=== PATIENT | male | born 1960 | race Caucasian/White ===

== ENCOUNTER → 2024-10-28 14:12 | Outpatient (REF) | payer BC, SELFPAY | LOC: MRI 14:12 | PROVIDERS: ATTENDING PHYSICIAN Psychiatry & Neurology Neurology; FAMILY PHYSICIAN Family Medicine | DX: R51.9 Headache, unspecified (principal) | CPT/HCPCS: 70544; 70551 ==

== ENCOUNTER 2024-11-23 16:04 | Inpatient (IN) | payer OTHER, SELFPAY ==
[2024-11-21] VITALS (8 sets, daily range): BP systolic 103–127; BP diastolic 64–88
[2024-11-21 17:09] LABS: % Basophils 0.6 % (0-2); % Eosinophils 2.8 % (0-6); % Immature Granulocytes 0.3 % (0-0.5); % Lymphocytes 22.2 % (20.5-51.1); % Monocytes 5.9 % (1.7-9.3); % Neutrophils 68.2 % (42.2-75.2); Absolute Eosinophils 0.2 10^3/uL (0-0.7); Absolute Lymphocytes 1.5 10^3/uL (1.2-3.4); Absolute Monocytes 0.4 10^3/uL (0.1-0.6); Absolute Neutrophils 4.7 10^3/uL (1.4-6.5); Hematocrit 44.4 % (39.0-52.0); Hemoglobin 15.6 g/dL (13.0-18.0); Mean Corp Hgb Conc. 35.1 g/dL (33.0-37.0); Mean Corpuscular Volume 91.2 fL (80.0-94.0); Mean Platelet Volume 9.5 fL (7.4-10.4); Nucleated Red Blood Cells % 0 % (-); Platelet Count 210 10^3/uL (130-400); Red Blood Cell Count 4.87 10^6/uL (4.70-6.10); Red Cell Dist. Width 12.2 % (11.5-14.5); White Blood Cell Count 6.9 10^3/uL (4.8-10.8)
--- NOTE | 2024-11-21 17:12 | ED.GENMED ---
History of Present Illness
General
Chief Complaint: Headache
Source: patient
Time Seen by Provider: 11/21/24 16:59
History of Present Illness
History of Present Illness:
64-year-old male presents to the emergency room complaining of headache, neck pain, dizziness and difficulty hearing. Patient has been having headache, auditory changes for several weeks. He was seen by various specialist and ultimately had a CT
of his head performed. CT showed chronic subdurals. Patient has been having worsening symptoms. He communicated with his doctors who ordered a CT angiogram today. Patient was unable to have it performed because he was having worsening headache.
Patient denies any nausea or vomiting. He denies any focal weakness numbness or tingling. Headache and neck pain seems worse with sitting up. He is taken Tylenol for pain without improvement. 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
Leyden deficiency.
Past History
Past History
ED Past Medical History: Other (PE/DVT/bursitis), Other (Covid pneumonia 08/29/19, adm in OR for 9 days, dced 09/07/19) and Other ( factor V Leiden deficiency. Rectal bleeding)
ED Past Surgical History: Orthopedic and Other (Tumor removed from the back.)
Social History
Tobacco: Non-smoker
Alcohol: None
Drug: None
Personal:
Living: with family
Employment: Employed
Family History
Family History: Other (Brother with diabetes mother with a brain tumor)
Phy Exam
Physical Exam
Physical Exam:
General: Awake, Alert, Oriented X3. No acute distress.
Vitals: unremarkable
Head: Atraumatic
Eyes: Pupils equal, EOMI
Throat: Airway intact, no exudates
Neck: Trachea midline
Lungs: Clear and equal b/l
Heart: Regular rate, no murmurs
Abd: Soft, Nontender, No pulsatile mass
Neuro: Cranial nerves intact, muscle strength equal bilaterally, cerebellar exam normal
Skin: Warm, dry, no rash
Extremities: pulses equal b/l, no edema
Course
Orders/Labs/Results
Orders:
Orders
11/21/24 17:02
C-Reactive Protein Urgent
Comment: ADDON
CMP [Comprehensive Metabolic Panel] Urgent
Complete Blood Count/With Diff Urgent
Erythrocyte Sed Rate Urgent
Comment: ADDON
11/21/24 17:10
Diphenhydramine [Benadryl] 25 mg IV NOW STA
Metoclopramide [Reglan] 10 mg IV NOW STA
11/21/24 17:21
CT Head & Neck Angio W/wo IV Urgent
Comment:
Reason For Exam: severe headache/neck pain, chronic subdural
11/21/24 17:31
Prothrombin Time Urgent
11/21/24 19:35
Add On- LAB Urgent
Tests Added?: sed rate, crp
11/21/24 21:50
HYDROmorphone [Dilaudid] 1 mg IV NOW STA
11/21/24 23:00
Flush (0.9% Sodium Chloride) [Flush (Nss)] See Dose Instructions IV PER PROTOCOL
11/21/24 23:05
Admit/Transfer Patient As Directed
Co-Sign Provider:
Level of Care: Observation services
Assign to:: Medical/Surgical
Physician / Group: citlalli so
Diagnosis: intractable neck pain/silva
Reason for Hospitalization: intractable neck pain/silva
Code Status As Directed
Resuscitation Status: Full Code
11/21/24 23:22
PRN Pain Medication Management As Directed
May give lesser potent ordered pain med per pt: Yes
preference::
Protocol:: Medication orders for pain may be administered in a
manner that supports deferring to patient preference
when the pt is:
- Requesting an ordered lesser potent pain medication.
Least to most potent pain medications are defined
as: acetaminophen < NSAID < tramadol < opioids
(morphine, oxycodone, hydromorphone).
- Requesting a lesser dose of the same medication IF
ORDERED.
- Requesting a less intrusive route of administration
if both routes are prescribed by the provider (PO <
IV).
11/21/24 23:28
Pantoprazole [Protonix] 20 mg PO NOW STA
Warfarin [Coumadin] 6 mg PO NOW STA
11/21/24 23:45
Rosuvastatin Calcium [Crestor] 5 mg PO QPM
Abnormal Lab Results
11/21/24 11/21/24
17:02 17:31
MCH 32.0 H pg
(27.0-31.0)
PT 29.1 H Sec
(11.4-14.6)
Chloride 110 H mmol/L
(98-107)
Glucose 116 H mg/dl
(70-99)
Total Bilirubin 2.2 H mg/dl
(0.2-1.3)
11/21/24 17:02
11/21/24 17:02
Vital Signs
Initial and Last Documented VS:
Initial Vital Signs
Temp Pulse Resp BP Pulse Ox
97.4 F 66 18 127/88 98
11/21/24 14:17 11/21/24 14:17 11/21/24 14:17 11/21/24 14:17 11/21/24 14:17
Last Documented Vital Signs
Temp Pulse Resp BP Pulse Ox
97.4 F 67 17 117/78 98
11/21/24 14:17 11/22/24 00:15 11/22/24 00:15 11/22/24 00:00 11/21/24 22:30
MDM/Problems Addressed
Differential Diagnosis Includes:
Tension headache, musculoskeletal strain, acute on chronic subdural, venous sinus thrombosis, subarachnoid hemorrhage
MDM/Problems Addressed:
Patient presents with neck pain and headache. No significant relief with migraine type medication. Toradol not an option given his use of Coumadin. Fortunately his INR is normal. CT of the head as well as a CT angiogram of the neck and head
failed to show any vascular abnormality. No evidence of dural sinus thrombosis. Patient had an MRI on October 28 which was also negative. Given the pain really starts in the cervical spine and emanates up to the head I think this very well could be
more of a cervical spine issue. Perhaps DJD. The CT of the head and neck does not show any obvious bony abnormality to explain his symptoms. However he likely requires an MRI to further exclude any serious pathology. The patient does not exhibit
any signs of cord compression such as bowel or bladder dysfunction, hyperreflexia, sensation changes. The patient has bilateral hygromas they do not appear to be causing any increased intracranial pressure as he has patent ventricles and they are
unchanged in the course of a month. Given the patient's persistent pain and the fact that he feels like he has too much pain to even sit up and stand up we will hospitalize him for further imaging of the cervical spine and pain control.
I considered giant cell arteritis as a possible cause for the patient's symptoms however CRP and sed rate are normal. The fact these tests are normal also makes something like an epidural abscess quite unlikely.
*Pulse Oximetry
SaO2: 98
Oxygen Mode of Delivery: Room air
Patient hypoxic: no
*Critical Care Note
Total Time (30-74mins, 75-104mins- exclusive of procedures): Not Applicable
ED Attending Note
-
Portions of this chart may have been created with voice recognition software.� Occasional wrong word or��sound alike� substitutions may have occurred due to the inherent limitations of voice recognition software.
Discharge Plan
Departure
Patient Disposition: Admit
Date of Disposition: 11/21/24
Time of Disposition: 22:11
Admit to: Med/Surg
Presentation/result/management discussed w/ accepting MD/DO: Hospitalist
Condition: Fair
Discharge Problem:
intractable neck pain
Interventions
Interventions:
*Risk Screen - Suicide Last Done: 11/21/24 14:17
*General Assessment Last Done: 11/21/24 17:18
*Neglect/Abuse Screening Last Done: 11/21/24 14:17
*ED- Fall Risk Assessment Last Done: 11/21/24 17:18
*ED COVID-19 Vaccine History Last Done: 11/21/24 17:18
ED- Neurological Assessment Last Done: 11/21/24 23:15
[2024-11-21] MEDS: BENADRYL 25 MG IV (17:26)
[2024-11-21] MEDS: REGLAN 10 MG IV (17:26)
[2024-11-21 17:32] LABS: ALT (SGPT) 30 U/L (0-50); AST (SGOT) 29 U/L (17-59); Albumin 4.6 g/dl (3.5-5.0); Alkaline Phosphatase 49 U/L (38-126); Blood Urea Nitrogen 17 mg/dl (9-20); Calcium 9.4 mg/dl (8.4-10.2); Carbon Dioxide 25 mmol/L (22-30); Chloride 110 mmol/L (98-107); Glucose 116 mg/dl (70-99); Sodium 143 mmol/L (135-145); Total Bilirubin 2.2 mg/dl (0.2-1.3); Total Protein 7.4 g/dl (6.3-8.2); eGFR > 60.00
[2024-11-21 17:54] LABS: INR 2.75; PT 29.1 Sec (11.4-14.6)
[2024-11-21 20:05] LABS: Erythrocyte Sed Rate 5 mm/hour (0-20)
[2024-11-21 20:15] LABS: C-Reactive Protein < 5.00 mg/L (0.0-10.00)
[2024-11-21] MEDS: DILAUDID 1 MG IV (21:55)
--- NOTE | 2024-11-21 22:19 | HPS.HSE ---
Family Physician
-
Family Physician: Juve Mcintyre
Chief Complaint
-
Posterior neck pain with radiation of headache to frontal sinus, hearing loss left greater than right
History of Present Illness
64-year-old male complaining of posterior base of neck/skull pain radiates to frontal sinus, headache, dizziness with difficulty hearing left greater than right. He reports his symptoms started first 4 weeks ago [facility]
diagnosed with a sinusitis placed on amoxicillin and steroids taper. He had a follow-up a week later with ENT Dr. Vital who tested his hearing and states it was the same since 10 years ago. He saw neurologist Dr. Osmel Arellano 3 weeks ago in
[facility] who referred him to neurosurgery. Before neurosurgery he had an MRI here at [facility] on October 28 showing subdural hygromas. He did see Dr. Bell at [place] approximately 1 week ago who suggested a CT scan with angiogram the same day
he wanted a second opinion and saw Dr.Vivish Reinoso via telehealth at [facility] who also recommended CT angiogram if that was negative he had suggested having his tympanic membranes evaluated by a specific physician. He denies blurred
vision, fever, chills, rash, tick bites, weakness, dropping things, chest pain, palpitations, cough, shortness of breath, weight loss, abdominal pain, nausea, vomiting, diarrhea, urinary symptoms. On exam he does have hyporeflexive extremities left
greater than right. He reports when he sits up he feels a pulling sensation in his neck which intensifies his headache and exacerbates a vertigo.
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
deficiency is on warfarin, GERD, IBS, hyperbilirubinemia(average level 2.2), COVID-pneumonia 08/29/2019 admitted [place] 9 days
Medical History
Past Medical History
Past Medical History: Reports Other
Additional Past Medical History:
Chronic hygromas on MRI September 2024
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
Spinal tumor 2005
DVT/PE post left knee surgery 2007
Factor V deficiency is on warfarin
GERD
IBS
Hyperbilirubinemia(average level 2.2)
HLD
Past Surgical History: Reports Other
Additional Past Surgical History:
Hemangioblastoma removed 11/2005 from T8
Left knee reconstruction 1985
Right knee reconstruction 1998
Left thumb pinning 1993
July 2016 right wrist surgery
Social History
Tobacco: Non-smoker
Alcohol: Occasional (2-3 beers a week)
Drug: None
Personal: Single
Living: With Family (Daughter at bedside)
Employment: Employed
Family History
Family History: Other (Mother history of glioblastoma age 89 father history of prostate cancer age 63)
Allergies / Home Medications
Allergies reflects when Allergies were last updated in [employer].
Home Medications with original date entered in [employer]
Allergy/Medication List:
Allergies
Allergy/AdvReac Type Severity Reaction Status Date / Time
No Known Allergies Allergy Verified 07/15/16 15:39
Home Medications
warfarin 6 mg tablet 6 mg PO QPM 01/04/11
Crestor 5 mg PO DAILY@11/21/24
omeprazole 20 mg PO DAILY@11/21/24
Review of Systems
-
History Source: Patient and Family (Daughter at bedside)
A 12 point ROS was completed and negative except as noted: Yes
Constitutional: Denies Fever, Weight Loss, Fatigue or Chills
EENT: Reports Other (Humming pressure sound to left ear with hearing loss, posterior neck pressure/headache/frontal sinus headache with light sensitivity); Denies Sore Throat
Respiratory: Denies Cough or Trouble Breathing
Cardiac: Denies Chest Pain, Diaphoresis, Palpitations or Syncope
Abdomen/GI: Denies Abdominal Pain, Nausea, Vomiting, Diarrhea, Constipated or Bloody Stools
: Denies Dysuria, Frequency, Flank Pain, Incontinence, Difficulty Voiding, Urgency or Dark Urine
Musculoskeletal: Denies Joint Pain or Edema
Skin: Denies Itching or Rash
Neurological: Reports Dizzy (With standing) and Headache (Posterior neck and frontal sinus); Denies Weakness or Numbness
Endocrine: Reports No Symptoms
Hematologic/Lymphatic: Reports No Symptoms
Psych: Reports Calm
Physical Exam
Vital Signs
Vital Signs
Temp Pulse Resp BP Pulse Ox
97.4 F 62 14 118/75 99
11/21/24 14:17 11/21/24 21:45 11/21/24 20:45 11/21/24 21:00 11/21/24 21:45
Physical Exam
General: Comfortable and Conversant; No Pain, Fever or Chills
HEENT: NormoCephalic, Anicteric, Moist mucous membranes, PERRLA and Other (Humming pressure sound to left ear with hearing loss, posterior neck pressure/headache/frontal sinus headache with light sensitivity); No Thyromegaly
Respiratory: Clear; No Wheezes, Rales or Rhonchi
Cardiac: S1/S2 and Regular Rhythm; No Murmur, Rub or Gallop
Breast: Deferred by me
GI: Soft, Non Tender, Non Distended, Normal Bowel Sounds and No Hepatosplenomegaly
Genito-urinary: Deferred by me
Musculoskeletal: No Clubbing, No Cyanosis and No Edema
Skin: Warm and Dry; No Rash or Jaundice
Neuro: AO x 3 and Other (Hearing impaired left greater than right, hyporeactive reflexes left greater than right); No Slurred Speech, Facial Droop, Tremors or Sedated
Psych: Calm
Laboratory Results
-
11/21/24 17:02
11/21/24 17:02
Laboratory Results
PT 29.1 Sec (11.4-14.6) H 11/21/24 17:31
INR 2.75 11/21/24 17:31
Total Bilirubin 2.2 mg/dl (0.2-1.3) H 11/21/24 17:02
AST 29 U/L (17-59) 11/21/24 17:02
ALT 30 U/L (0-50) 11/21/24 17:02
Alkaline Phosphatase 49 U/L (38-126) 11/21/24 17:02
Data Reviewed
-
Lab Data: Labs Reviewed by me
Impression/Plan
-
Impression/plan:
Observation MedSurg
#Intractable cervical pain with migraine
#History of chronic hygromas on MRI September 2024
- Pain control
- Consult Neurology
-Patient saw neurosurgery via Zoom Dr.Vivish Reinoso from [facility]
- MRI with and without cervical spine/thoracic in a.m.
- Patient claustrophobic will require IV Ativan on-call to MRI
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
#Spinal tumor 2005
#DVT/PE post knee surgery
#Factor V deficiency is on warfarin
-INR 2.75 on Coumadin
Follow PTT INR
- Continue Coumadin 6 mg daily
#GERD
- Continue omeprazole
#HLD
Continue Crestor 5 mg with dinner
#IBS
#Hyperbilirubinemia(average level 2.2)
T. bili 2.2 at baseline
#COVID-pneumonia 08/29/2019 admitted [place] 9 days
DVT prophylaxis
Continue COLORIST DYER Coumadin
Full code
--- NOTE | 2024-11-21 22:36 | W.PN.UPDATE ---
Addendum entered and electronically signed by Kyler Gamble MD 11/21/24 22:54:
H & N CTA
- No significant vascular occlusion, aneurysm or dissection. No significant change between flexion/extension.
Original Note:
Update Note
Progress Note Update
This note serves as an addendum to the H&P by gas specialist JUNIE Apurva SHANNON
64M HX Factor V deficiency for which he takes warfarin, HX chronic hygromas noted a month ago on an MRI without intrval change, distant HX intramedullary hemangioblastoma of T8 seen at ER
- progressive and severe neck and basal skull pain for a couple weeks
- reports SOUZA but seems neck pain that radiates to head then a true headache.
- pain becomes worse with upright posture
Vital Signs
Temp Pulse Resp BP Pulse Ox
97.4 F 62 18 115/80 98
11/21/24 14:17 11/21/24 22:30 11/21/24 22:30 11/21/24 22:00 11/21/24 22:30
Exam
- No focal weakness.
- Somewhat symmetrically decreased deep tendon reflexes at all 4 limbs
- symmetric motor strength and tone in all limbs
- No focal sensory deficit
Abnormal Lab
11/21/24 11/21/24
17:02 17:31
MCH 32.0 H
PT 29.1 H
Chloride 110 H
Glucose 116 H
Total Bilirubin 2.2 H
Unremarkable HCT and H & N CTA
ASSESSMENT & PLAN
Progressive and severe neck and basal skull pain
DDX: Cervical disc dz or recurrent spinal hemangioblastoma
- ER attd d/w neurosurgery (Dr. High) who did think there was anything else to do at this point.
- MRI of Cx and Tx spine w/wo contrast
- Pain control with Narcotic Analgesia PRN
Therapeutic INR at 2.7 for HX Factor V deficiency on chr warfarin- to becot, f/u INR
DVT Px; SENIOR ADMINISTRATIVE SUPPORT chr warfarin
Full code
OBS MS
[2024-11-22] VITALS (8 sets, daily range): BP systolic 110–130; BP diastolic 62–84; BMI 25.5
[2024-11-22] MEDS: COUMADIN 6 MG PO ×2 (00:06→17:25)
[2024-11-22] MEDS: CRESTOR 5 MG PO ×2 (00:07→17:30)
[2024-11-22] MEDS: PROTONIX 20 MG PO (00:07)
[2024-11-22] MEDS: FLUSH (NSS) 1 FLUSH IV (00:09)
--- NOTE | 2024-11-22 01:23 | PTCARENOTE ---
01:07 pt rec'vd from ER ,pt is aa0x3 ambulates in room, education with use of call mead for ambulation due to dx headache/balance. Pt verbalized understanding , oriented to unit.
[2024-11-22] MEDS: DILAUDID 0.5 MG IV ×4 (01:39→19:19)
[2024-11-22] MEDS: OFIRMEV 100 IV (04:55)
[2024-11-22 06:45] LABS: INR 2.76; PT 29.1 Sec (11.4-14.6)
[2024-11-22 06:47] LABS: % Basophils 0.8 % (0-2); % Eosinophils 5.6 % (0-6); % Immature Granulocytes 0.3 % (0-0.5); % Lymphocytes 36.1 % (20.5-51.1); % Monocytes 10.5 % (1.7-9.3); % Neutrophils 46.7 % (42.2-75.2); Absolute Basophils 0.1 10^3/uL (0-0.2); Absolute Eosinophils 0.4 10^3/uL (0-0.7); Absolute Lymphocytes 2.3 10^3/uL (1.2-3.4); Absolute Monocytes 0.7 10^3/uL (0.1-0.6); Absolute Neutrophils 2.9 10^3/uL (1.4-6.5); Hematocrit 41.4 % (39.0-52.0); Hemoglobin 14.5 g/dL (13.0-18.0); Mean Corpuscular Hgb 32.1 pg (27.0-31.0); Mean Corpuscular Volume 91.6 fL (80.0-94.0); Mean Platelet Volume 9.6 fL (7.4-10.4); Nucleated Red Blood Cells % 0 % (-); Platelet Count 207 10^3/uL (130-400); Red Blood Cell Count 4.52 10^6/uL (4.70-6.10); Red Cell Dist. Width 12.4 % (11.5-14.5); White Blood Cell Count 6.3 10^3/uL (4.8-10.8)
[2024-11-22 06:53] LABS: ALT (SGPT) 27 U/L (0-50); AST (SGOT) 23 U/L (17-59); Albumin 4.1 g/dl (3.5-5.0); Alkaline Phosphatase 43 U/L (38-126); Blood Urea Nitrogen 19 mg/dl (9-20); Calcium 9.2 mg/dl (8.4-10.2); Carbon Dioxide 30 mmol/L (22-30); Chloride 107 mmol/L (98-107); Estimated Creatinine Clearance 81 ml/min; Glucose 102 mg/dl (70-99); Magnesium 2.1 mg/dl (1.6-2.3); Potassium 3.8 mmol/L (3.5-5.1); Sodium 142 mmol/L (135-145); Total Bilirubin 1.9 mg/dl (0.2-1.3); Total Protein 6.7 g/dl (6.3-8.2); eGFR > 60.00
--- NOTE | 2024-11-22 10:23 | CM ---
Reviewed the chart notes and spoke with the patient at the bedside. The patient is admitted under observational status. The observation letter was provided and explained. The patient had no questions with regards to the letter.
The patient resides alone in a third floor condo with three flights of steps to enter. The patient reports no DME/VN/SNF in the past. The patient confirmed his pharmacy of choice is [facility]. continues to be available to
patient/family and is monitoring medical plan for needs at discharge.
Plan: Discharge to home when medically stable. No anticipated needs identified at this time.
--- NOTE | 2024-11-22 12:40 | W.PN.HOSP.TC ---
Today's Communication/Plan
-
Assessment / Plan
Assessment / Plan
NAD
Scleral Anicteric
MMM
No JVD
CTABL
RRR, S1/S2
Soft, NT, ND, BS+
Warm, Dry
AAOx3, no focal deficits
Calm
Cervicalgia with migraine
-Suspect more musculoskeletal
MRI C-spine in thoracic spine ordered
Start Flexeril and Valium
Heating pack
VTE post knee surgery factor V deficiency
Continue Coumadin
Daily INR
Continue Coumadin 6 mg nightly
GERD
Continue PPI
HLD
Continue Crestor
Anticipated Discharge: 24 - 48 hours
Subjective/Interval History
-
Date of Service: November 22, 2024
Seen and examined. No new complaints. No acute overnight events.
Ice pack over his neck
No numbness tingling loss of sensation, blurry vision or loss of hearing. No chest pain shortness of breath fevers chills
Objective Data
-
Labs:
Laboratory Results
11/22/24
05:30
WBC 6.3
Hgb 14.5
Hct 41.4
Plt Count 207
PT 29.1 H
INR 2.76
Sodium 142
Potassium 3.8
Chloride 107
Carbon Dioxide 30
BUN 19
Creatinine 1.1
Glucose 102 H
Calcium 9.2
Total Bilirubin 1.9 H
AST 23
ALT 27
Alkaline Phosphatase 43
Vital Signs:
Vital Signs
Temp Pulse Resp BP Pulse Ox
97.8 F 59 16 130/78 98
11/22/24 07:35 11/22/24 07:35 11/22/24 07:35 11/22/24 07:35 11/22/24 07:35
I&O
11/21/24 11/22/24 11/23/24
06:59 06:59 06:59
Intake Total 500 / 500
Balance 500 / 500
[2024-11-22] MEDS: FLEXERIL 5 MG PO (14:24)
[2024-11-22] MEDS: ZOFRAN 4 MG IV (15:04)
[2024-11-22] MEDS: NSS (PRESERVATIVE FREE) 0.5 ML IV (19:25)
[2024-11-22] MEDS: ATIVAN 1 MG IV (19:26)
[2024-11-22] MEDS: VALIUM 1 MG PO (23:19)
[2024-11-23] MEDS: LIDOCAINE 4% PATCH TOPICAL (01:00)
[2024-11-23 06:07] LABS: % Basophils 0.6 % (0-2); % Eosinophils 4.4 % (0-6); % Immature Granulocytes 0.4 % (0-0.5); % Lymphocytes 33.5 % (20.5-51.1); % Monocytes 8.4 % (1.7-9.3); % Neutrophils 52.7 % (42.2-75.2); Absolute Eosinophils 0.3 10^3/uL (0-0.7); Absolute Lymphocytes 2.3 10^3/uL (1.2-3.4); Absolute Monocytes 0.6 10^3/uL (0.1-0.6); Absolute Neutrophils 3.7 10^3/uL (1.4-6.5); Hematocrit 43.6 % (39.0-52.0); Hemoglobin 15.5 g/dL (13.0-18.0); Mean Corp Hgb Conc. 35.6 g/dL (33.0-37.0); Mean Corpuscular Volume 89.9 fL (80.0-94.0); Mean Platelet Volume 9.5 fL (7.4-10.4); Nucleated Red Blood Cells % 0 % (-); Platelet Count 216 10^3/uL (130-400); Red Blood Cell Count 4.85 10^6/uL (4.70-6.10); Red Cell Dist. Width 11.9 % (11.5-14.5)
[2024-11-23 06:16] LABS: INR 2.95; PT 31.1 Sec (11.4-14.6)
[2024-11-23 06:37] LABS: ALT (SGPT) 28 U/L (0-50); AST (SGOT) 27 U/L (17-59); Albumin 4.6 g/dl (3.5-5.0); Alkaline Phosphatase 46 U/L (38-126); Blood Urea Nitrogen 24 mg/dl (9-20); Calcium 9.5 mg/dl (8.4-10.2); Carbon Dioxide 27 mmol/L (22-30); Chloride 108 mmol/L (98-107); Estimated Creatinine Clearance 74 ml/min; Glucose 109 mg/dl (70-99); Potassium 4.2 mmol/L (3.5-5.1); Sodium 140 mmol/L (135-145); Total Bilirubin 2.2 mg/dl (0.2-1.3); Total Protein 7.3 g/dl (6.3-8.2); eGFR > 60.00
[2024-11-23 07:35] VITALS: BP 117/67
[2024-11-23] MEDS: DILAUDID 0.5 MG IV ×2 (09:22→13:50)
[2024-11-23] MEDS: FLUSH (NSS) 2 FLUSH IV (09:24)
--- NOTE | 2024-11-23 10:52 | W.PN.HOSP.TC ---
Addendum entered and electronically signed by Dixon Singer MD 11/24/24 08:21:
More than 30 minutes spent in discharge including
Final examination of the patient
Summarizing hospital stay
Instructions for continuing care to all relevant caregivers
Preparation of discharge records, prescriptions, and referral forms
Total time spent (in minutes): 52
Addendum entered and electronically signed by Dixon Singer MD 11/23/24 16:08:
Discussed case in detail with neurology, neurosurgery and RN. Patient with severe persistent headache with possibility of due to intracranial hypertension due to suspected cervical spine dural tear. Patient remains with persistent headache without
much improvement. Patient even was started on IV fluids. Per neurosurgery and neurology further treatment management would need to be done. Patient will be transferred to [facility] for further management. Accepting attending will be
. Patient signed a form. Discussed case with patient daughter at bedside in detail. Case management also informed. Await for transfer. Patient INR is therapeutic. Hold Coumadin for possible procedure.
Original Note:
Today's Communication/Plan
-
start IVF
neuro input
pain control
Assessment / Plan
Assessment / Plan
NAD
Scleral Anicteric
MMM
No JVD
CTABL
RRR, S1/S2
Soft, NT, ND, BS+
Warm, Dry
AAOx3, no focal deficits
Calm
#Headache subacute-worse with movement at times
#Tinnitus due to see ENT inner staff nuclear medicine technologist as outpatient
MRI C-spine in thoracic spine ordered
MR Hernandezine per radiologist- d/w with Dr Hill suggesting possibility of upper cervical epidural venous congestion which may be seen with spontaneous intracranial hypotension, which may also explain the subdural hygromas on his brain MR.
MR thoraic spine The thoracic cord is normal in size and signal intensity. No abnormal enhancement. No focal disc protrusion, central canal, or foraminal stenosis.
Start Flexeril and Valium
Heating pack
Start IVF
Will ask neuro for input
VTE post knee surgery factor V deficiency
Continue Coumadin
Daily INR
Continue Coumadin 6 mg nightly
GERD
Continue PPI
HLD
Continue Crestor
Anticipated Discharge: > 48 hours
Subjective/Interval History
-
Date of Service: November 23, 2024
complains of severe headache
starts at left side of neck which radiates to left forehead than radiates over entire head
severe pain-worse on standing
has some tinnitus -Prior to arrival
Objective Data
-
Labs:
Laboratory Results
11/23/24
05:55
WBC 7.0
Hgb 15.5
Hct 43.6
Plt Count 216
PT 31.1 H
INR 2.95
Sodium 140
Potassium 4.2
Chloride 108 H
Carbon Dioxide 27
BUN 24 H
Creatinine 1.2
Glucose 109 H
Calcium 9.5
Total Bilirubin 2.2 H
AST 27
ALT 28
Alkaline Phosphatase 46
Vital Signs:
Vital Signs
Temp Pulse Resp BP Pulse Ox
98.2 F 73 16 117/67 97
11/23/24 07:35 11/23/24 07:35 11/23/24 07:35 11/23/24 07:35 11/23/24 07:35
I&O
11/22/24 11/23/24 11/24/24
06:59 06:59 06:59
Intake Total 500 / 500 120 / 120
Output Total 950 / 950
Balance 500 / 500 -830 / -830
--- NOTE | 2024-11-23 10:53 | CM ---
Addendum entered by Megan May 11/23/24 16:04:
Per physician patient is for transfer to [place] for neurosurgery.
Original Note:
Patient seen at bedside on . Patient c/o pain and nursing made aware. Patient is OBS status and per chart review form completed 11/22/24. CM will continue to follow for discharge planning needs.
Plan; home with no needs anticipated at this time
--- NOTE | 2024-11-23 11:24 | CON.NEURO4 ---
Addendum entered and electronically signed by Ad Hollins MD 11/23/24 17:26:
Studies reviewed.
I have personally examined the patient. I reviewed and agree with the PHARMACY BENEFIT MANAGER's Note.
My addenda:
Awake, alert, interactive. No acute distress, until attempted upgaze
Speech intact.
Follows 2-step requests w/o difficulty. No tremor.
Extra-ocular movements grossly intact.
Facial movements full and symmetric. Hearing intact to normal conversational volume.
Normal UE movements bilaterally.
Neck: full ROM.
Chest: no dyspnea
Heart: no JVD
Ext: (-) Clubbing, (-) Cyanosis, (-) Edema
IMPRESSIONS/RECOMMENDATIONS:
Abrupt onset of dizziness, intractable headache with development of atraumatic subdural hygromas
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
Recommend neurosurgical reevaluation as inpatient
Patient may benefit from spinal myelography at all levels to determine where the potential leak is taking place as MRI of the thoracic spine was nonrevealing
Blind blood patch may be utilized in the interim in hopes of remediating his current issue
Unlikely that this is related to his prior intramedullary hemangioblastoma remediated in 2005
Routine pain medications for remediation may be of mild temporary assistance but will not remediate the underlying cause
D/W patient / family / nursing
All questions answered.
Will continue to follow patient.
Original Note:
Consultation - Neurology 4
-
CONSULTING PHYSICIAN: Ad Hollins MD
REFERRING PHYSICIAN: Hospitalists/Dr. Singer
DICTATED BY: OLY Edwards
DATE/TIME OF REQUEST: 11/23/24
DATE/TIME OF CONSULTATION: 11/23/24
Reason for Consultation: Headache
History of Present Illness:
This is a 64-year-old right-handed male who has presented to the hospital with report of hearing changes, head/neck pain, and dizziness. Patient reports that about 5-6 weeks ago he started to hear a 'speaker' sound in his left ear. He noticed at
the grocery store that he couldn't hear the words coming from overhead speakers, he just hear a loud buzzing speaker sound. He went to ENT Dr. Vital to be evaluated and reports his hearing was the same as it was 10 years ago and there was no
structural abnormality wrong with his ear. He then started to develop sinus pain and was started on amoxicillin and steroids for a presumed sinus infection. He reports that he then started developing a dizzy sensation and went to a Neurologist "Raymond"Adan Luther for evaluation. He ordered an MRI brain and MRA head which he completed on 10/28/24 and demonstrate small bihemispheric subdural fluid collections, likely hygromas. He was then referred to Neurosurgery Dr. Bell at [facility], who recommended
a diagnostic CT angiogram. He went for a second opinion via telehealth with the [facility] by Dr. Genie Reinoso who also recommended diagnostic angiogram. He had not completed this yet as an outpatient. Last week, he developed neck
pain. His neck/head pain significantly worsened over the past 3 days, prompting him to come to the ER for evaluation.
Patient reports that the loud hum in his left ear changes with movement and has gotten louder with time. The pain starts at the back of his neck and radiates up across the top of his head and squeezes at his temples. He describes it as a crushing
sensation. He also notes eye pain when he looks in different directions. He has mild photophobia; denies phonophobia, nausea, and vomiting. Lying down improves his symptoms after a couple of minutes, he rates his discomfort a 3/10 currently with
lying. Standing up makes his symptoms worsen and he rates that discomfort an 8/10. Standing for longer periods he also starts to feel dizzy. He denies any vision changes, speech/swallow difficulty, numbness, and weakness. He denies any recent
illness, fever, rash, or travel. Six months ago he collided with someone playing pickle ball but did not lose consciousness.
In his late 20's he was hospitalized with concern for meningitis, he reports having a lumbar puncture at that time and ultimately needed a blood patch. 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
underwent surgery by Dr. Crum at [facility] in 2005. He is taking warfarin for Factor V Leiden.
Past Medical History: Spinal tap with CSF leak in his 20's due to concern for meningitis, T8 intramedullary hemangioblastoma, PE, DVT, Factor V Leiden (warfarin), MAYTE, GERD, HLD, hyperbilirubinemia
Surgical History: T8 tumor removal, b/l knee reconstruction, left thumb pinning, right wrist surgery
Family History: Mother- brain tumor
Social History: Denies tobacco and illicit drug use. Occasional alcohol.
Allergies: No known allergies.
Home Medications: See below.
Review of Symptoms:
Patient denies any fever, chest pain, shortness of breath, GI or symptoms.
�Per the HPI.�All systems are reviewed negative except above.
Physical Exam:
The patient is afebrile, abdomen is nondistended, breathing is unlabored, skin is warm and dry, no edema.
Neurologic Examination:
The patient is awake, alert and oriented x 3. He is able to follow commands and answer questions appropriately. There is no aphasia or dysarthria. On cranial nerve assessment, pupils are 3 mm bilateral, round and reactive to light and
accommodation. Visual colon are full. Extraocular movements are intact, reports pain with this. Facial sensations are intact and bilaterally symmetrical, there is no facial asymmetry. Hearing is intact bilaterally to normal conversation volume.
Tongue palate and uvula are midline. Sternocleidomastoid strengths are full bilaterally. Motor strengths are 5/5 bilateral upper and lower extremities on medical research [place] scale. There is no drift or involuntary movement noted. Deep tendon
reflexes are 2+ bilateral upper and lower extremities and Babinski is absent bilaterally. Sensations of pain, touch, temperature and vibration are intact and bilaterally symmetrical. There was no extinction noted on double simultaneous stimulation.
Coordination is intact by finger to nose bilaterally.
Lab Results: See below.
Neuro Imaging:
1. MRI Brain 10/28/24: Small bihemispheric subdural fluid collections most compatible with subdural hygromas or chronic hematomas. No MRI evidence for acute or subacute blood products.
2. MRA Head 10/28/24: Patent dural venous sinuses. No high-grade stenosis or occlusion of the [place] of [place]. 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
3. CTA head/neck 11/21/24: No significant vascular occlusion, aneurysm or dissection. No significant change between flexion/extension. Grossly stable bilateral subdural fluid collections.
4. MRI cervical spine 11/22/24: Patient movement with motion degradation obscures fine detail. Findings suspicious for upper cervical epidural venous congestion. Although nonspecific, this has been described in patients with spontaneous intracranial
hypotension. Clinical correlation therefore necessary. No cerebellar ectopia at the craniocervical junction. No apparent cervical cord signal alteration or abnormal enhancement.
5. MRI thoracic spine 11/22/24: Minor curvature convex right. The disc spaces are relatively well-maintained. Normal vertebral stature. The thoracic cord is normal in size and signal intensity. No abnormal enhancement. No focal disc protrusion,
central canal, or foraminal stenosis. Multilevel bilateral small perineural cysts are noted. Incidental small hepatic cysts noted.
Differentials for the patient's presentation include:
1. Spontaneous intracranial hypotension; subdural hygromas.
2. History of T8 intramedullary hemangioblastoma s/p resection.
Patient has the following risk factors for their symptoms: None.
Recommendations:
-Needs Neurosurgery evaluation to determine source of dural leak.
-Not clearly a candidate for blood patch by IR due to prior T8 surgery.
Discussed patient care with: Dr. Hollins, the patient, patient's daughter
Vital Signs and Labs
-
Vital Signs and Labs:
Vital Signs
Temp Pulse Resp BP Pulse Ox
98.2 F 73 16 117/67 97
11/23/24 07:35 11/23/24 07:35 11/23/24 07:35 11/23/24 07:35 11/23/24 09:00
Lab Results
11/23/24 05:55
11/23/24 05:55
PT 31.1 Sec (11.4-14.6) H 11/23/24 05:55
INR 2.95 11/23/24 05:55
Sodium 140 mmol/L (135-145) 11/23/24 05:55
Potassium 4.2 mmol/L (3.5-5.1) 11/23/24 05:55
BUN 24 mg/dl (9-20) H 11/23/24 05:55
Glucose 109 mg/dl (70-99) H 11/23/24 05:55
Calcium 9.5 mg/dl (8.4-10.2) 11/23/24 05:55
Medications
-
Active Medications
Generic Name Dose Route Start Last Admin
Trade Name Freq PRN Reason Stop Dose Admin
Acetaminophen 650 mg 11/22/24 01:07
Acetaminophen 325 Mg Tablet PO 12/20/24 01:06
Q4HPRN PRN
mild pain/SOUZA/temp> 100.4F
Bisacodyl 10 mg 11/22/24 01:07
Bisacodyl 10 Mg Rectal Suppository RECTAL 12/20/24 01:06
[id number] PRN
constipation
Cyclobenzaprine HCl 5 mg 11/22/24 09:26 11/22/24 14:24
Cyclobenzaprine 10 Mg Tablet PO 12/20/24 09:25 5 mg
Q8HPRN PRN Administration
neck spasm/pain
Diazepam 1 mg 11/22/24 09:26 11/22/24 23:19
Diazepam 2 Mg Tablet PO 12/20/24 09:25 1 mg
TIDPRN PRN Administration
neck pain
Diphenhydramine HCl 25 mg 11/22/24 01:07
Diphenhydramine 50 Mg/Ml 1 Ml Vial IV 12/20/24 01:06
Q4HPRN PRN
headache
Hydromorphone HCl 1 mg 11/22/24 01:07
Hydromorphone 1 Mg/Ml Carpuject IV 12/06/24 01:06
Q4HPRN PRN
sever pain
Hydromorphone HCl 0.5 mg 11/22/24 01:07 11/23/24 09:22
Hydromorphone 0.5 Mg/0.5 Ml Syringe IV 12/06/24 01:06 0.5 mg
Q4HPRN PRN Administration
mod pain
Lactated Ringer's 1,000 mls @ 125 mls/hr 11/23/24 11:00
Lr IV
.Q8H KIYA
Lidocaine 1 patch 11/23/24 00:00 11/23/24 01:00
Lidocaine 4% Topical Patch TOPICAL 12/21/24 00:00 Not Given
HS KIYA
Protocol
Melatonin 5 mg 11/22/24 23:55 11/23/24 00:00
Melatonin 5 Mg Tablet PO 12/20/24 23:54 Not Given
HS KIYA
Ondansetron HCl 4 mg 11/22/24 01:07 11/22/24 15:04
Ondansetron 4 Mg/2 Ml Vial IV 12/20/24 01:06 4 mg
Q6HPRN PRN Administration
NAUSEA/VOMITING
Patch Removal 1 patch 11/23/24 10:00 11/23/24 09:41
Remove Lidocaine Patch REMOVE 12/21/24 09:59 Not Given
DAILY@1000 KIYA
Polyethylene Glycol 17 grams 11/22/24 01:07
Polyethylene Glycol Powder 17 Grams Packet PO 12/20/24 01:06
DAILYPRN PRN
constipation
Rosuvastatin Calcium 5 mg 11/21/24 23:45 11/22/24 17:30
Rosuvastatin (Crestor) 5 Mg Tablet PO 12/19/24 23:44 5 mg
QPM KIYA Administration
Senna/Docusate Sodium 1 tablet 11/22/24 01:07
Docusate W/Senna (Jayne-Colace) Tablet PO 12/20/24 01:06
BIDPRN PRN
constipation
Sodium Chloride 0 flush 11/21/24 23:00 11/23/24 09:24
Sodium Chloride 0.9% (Flush) Syringe IV 12/19/24 22:59 2 flush
PER PROTOCOL KIYA Administration
Warfarin Sodium 6 mg 11/22/24 18:00 11/22/24 17:25
Warfarin 3 Mg Tablet PO 12/20/24 17:59 6 mg
QPM KIYA Administration
Home Medications
�Medication �Instructions �Recorded
warfarin 6 mg tablet 6 mg PO QPM 01/04/11
Crestor 5 mg PO DAILY@18 11/21/24
omeprazole 20 mg PO DAILY@17 11/21/24
fiber 1 cap PO DAILY 11/22/24
multivitamin 1 tab PO DAILY 11/22/24
[2024-11-23] MEDS: LR 1000 IV (12:00)
[2024-11-23] MEDS: FLUSH (NSS) 1 FLUSH IV (12:00)
[2024-11-23] MEDS: TYLENOL 650 MG PO (15:00)
[2024-11-23 15:20] VITALS: BP 120/71
[2024-11-23] MEDS: CRESTOR 5 MG PO (17:48)
[2024-11-23] MEDS: DILAUDID 1 MG IV (17:52)
[2024-11-23 21:04] VITALS: BP 124/73
[2024-11-23] MEDS: LIDOCAINE 4% PATCH 1 PATCH TOPICAL (21:06)
[2024-11-23] MEDS: ULTRAM 50 MG PO (21:06)
[2024-11-23] MEDS: PROTONIX 20 MG PO (21:18)
--- NOTE | 2024-11-23 21:59 | PTCARENOTE ---
Pt transfered via EMS on stretcher. To be transported to [place]
--- NOTE | 2024-11-24 08:17 | W.DCSUMMARY ---
Discharge Summary
Discharge Data
Date of Admission: 11/21/24
Date of Discharge: 11/23/24
-
Pending Results: No
Hospital Course
64-year-old male past medical history of VTE status post knee surgery with factor V Leyden deficiency, GERD, hyperlipidemia was presented with complaint of headache. Patient also complaining of tinnitus speech seeing outpatient with neurologist.
Patient also saw neurologist and neurosurgery as outpatient. Patient underwent MRI of the brain which showed subdural hygroma. Patient stating of cervical pain mostly on the left side which then radiates to the forehead and then takes over his
entire head per patient. Patient underwent MRI of the spine. MR Stephen per radiologist- d/w with Dr Hill suggesting possibility of upper cervical epidural venous congestion which may be seen with spontaneous intracranial hypotension, which
may also explain the subdural hygromas on his brain MR. MR thoraic spine The thoracic cord is normal in size and signal intensity. No abnormal enhancement. No focal disc protrusion, central canal, or foraminal stenosis. Patient was started on IV
fluid resuscitation. Patient stated worsening of pain with positional changes especially upon standing up. Neurology evaluated patient. Case was discussed in detail with neurosurgery. Per neurology, spontaneous intracranial hypotension most
likely due to a dural tear which may be either at the cervical level or at the level where the patient had prior surgery at T8. Neurology recommended patient could benefit from spinal myelography to assess for potential leak and to consider
treatment with blood patch in the hopes of mitigating his current issue. This was discussed with patient also with patient daughter who both agreed for transfer. Patient was transferred to [facility].
Discharge Plan
-
Patient Disposition: Acute Care Hospital
Discharge Date and Time
Discharge Date/Time: 11/23/24 21:50
Print Language: AUSTRIAN
== END 2024-11-23 21:50 | disposition short-term general hospital (02) | DRG 71 ==
LOC: 2 SOUTH 16:04
PROVIDERS: Clinical Nurse Specialist Family Health; Emergency Medicine; ADMITTING PHYSICIAN Internal Medicine; ATTENDING PHYSICIAN Hospitalist; CONSULT PHYSICIAN Psychiatry & Neurology Neurology; EMERGENCY PHYSICIAN Emergency Medicine; FAMILY PHYSICIAN Family Medicine
DX: G96.81 Intracranial hypotension (principal); D68.51 Activated protein C resistance; G96.08 Other cranial cerebrospinal fluid leak; Z79.01 Long term (current) use of anticoagulants; M54.2 Cervicalgia; G43.909 Migraine, unspecified, not intractable, without status migrainosus; K21.9 Gastro-esophageal reflux disease without esophagitis; E78.5 Hyperlipidemia, unspecified; H93.19 Tinnitus, unspecified ear
CPT/HCPCS: 70496; 70498; 72156; 72157; 80053; 83735; 85025; 85610; 85652; 86140; 96374; 96375; 99285; A9575; Q9967

== ENCOUNTER → 2024-12-26 10:32 | Outpatient (REF) | payer OTHER, SELFPAY | LOC: HWRAD 10:32 | PROVIDERS: ATTENDING PHYSICIAN Nurse Practitioner Family; FAMILY PHYSICIAN Family Medicine; REFERRING PHYSICIAN Neurological Surgery | DX: G96.08 Other cranial cerebrospinal fluid leak (principal) | CPT/HCPCS: 70450 ==